=== PATIENT | male | born 1995 ===

== ENCOUNTER 2019-09-12 15:47 | Emergency (ER) | payer SELFPAY ==
--- NOTE | 2019-09-12 16:37 | RAD REPORT ---
EXAM DESCRIPTION: RAD - Chest Pa And Lat (2 Views) - 09/12/2019 4:26 pm CLINICAL HISTORY: intoxicationaltered mental status COMPARISON: None TECHNIQUE: Frontal and lateral views of the chest were obtained. FINDINGS: The lungs are clear. Coarse calcification in the right axilla is present not believed to be of acute clinical significance. Heart size is normal and central vasculature is within normal limi ts. No pleural effusion or pneumothorax seen. No acute bony finding noted. No aortic abnormality. IMPRESSION: No acute cardiopulmonary process.
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
[2019-09-12 16:48] VITALS: BP 130/97; TEMP 98; O2SAT 99
== END 2019-09-12 16:40 | disposition left against medical advice (07) ==
LOC: ER 15:47
DX: F10.129 Alcohol abuse with intoxication, unspecified (principal); F17.210 Nicotine dependence, cigarettes, uncomplicated
CPT/HCPCS: 71046; 99282